=== PATIENT | female | born 1980 | race Caucasian/White ===

== ENCOUNTER → 2024-10-24 09:53 | Outpatient (BNVA) | payer OTHER, SELFPAY | PROVIDERS: PCP Family Medicine; Visit Provider Family Medicine | DX: Z00.00 Encounter for general adult medical examination without abnormal findings (principal); E66.01 Morbid (severe) obesity due to excess calories; E88.810 Metabolic syndrome | CPT/HCPCS: 80053; 80061; 83001; 83002; 83036; 83525; 84403; 84443; 85025 ==